=== PATIENT | female | born 1995 | race Two or more races ===

== ENCOUNTER 2024-05-10 15:00 | Emergency (ER) | payer MEDICAID ==
[~2024-05-10] VITALS: Ht 162.6 cm; Wt 68.0 kg
[2024-05-10 15:20] VITALS: BP 108/66; TEMP 98.6; O2SAT 97
[2024-05-10] MEDS ORDERED: GUAI1TBM19 PO (15:57)
[2024-05-10] MEDS ORDERED: ACET325C7 PO (15:57)
[2024-05-10] MEDS ORDERED: IBUP-1953 PO (15:57)
[2024-05-10] MEDS ORDERED: FEXO1TAB11 PO (15:57)
== END 2024-05-10 16:52 | disposition home or self-care (01) ==
LOC: ER 15:06
DX: J06.9 Acute upper respiratory infection, unspecified (principal); B97.89 Other viral agents as the cause of diseases classified elsewhere; Z20.822 Contact with and (suspected) exposure to COVID-19

== ENCOUNTER 2024-09-28 10:44 | Emergency (ER) | payer MEDICAID, OTHER ==
[~2024-09-28] VITALS: Ht 154.9 cm; Wt 74.8 kg
[~2024-09-28 10:44] MED LIST: ACET325C7 PO; FEXO1TAB11 PO; GUAI1TBM19 PO; IBUP-1953 PO
[2024-09-28 10:54] VITALS: BP 102/62; TEMP 98.8; O2SAT 97
[2024-09-28] MEDS ORDERED: FLUT16SP16 BNOSTRILS (11:02)
[2024-09-28] MEDS ORDERED: AZIT250T13 PO (11:02)
== END 2024-09-28 11:11 | disposition home or self-care (01) ==
LOC: ER 10:49
DX: J32.9 Chronic sinusitis, unspecified (principal)